=== PATIENT | female | born 1955 | race Caucasian/White ===

== ENCOUNTER → 2019-07-17 | Outpatient (CLI) | payer OTHER ==
[~2019-07-17] MED LIST: ASPIRIN325 PO; COLACE 100 MG100 MG PO; COZAAR 25 MG TA25 M1 PO; FLEXERIL PO; GUAIFEN-CODEIN120 ML PO; LEVOFLOXACIN750 MG PO; METFORMIN HCL500 MG PO; NO HOME MEDS; NORCO 5-325 TA1 EACH PO; OXYCODONE HCL5 M1 PO; PERCOCET 5-3251 EACH PO; PREDNISONE 10 M10 MG PO; VENTOLIN HFA 1818 GM INH
[2019-07-17 08:00] LABS: POTASSIUM 4.1 mmol/L (3.5-5.1)
== END ==
LOC: M.LAB 05:13
PROVIDERS: Anesthesiology
DX: E11.9 Type 2 diabetes mellitus without complications (principal); E87.6 Hypokalemia